=== PATIENT | male | born 1995 | race Caucasian/White ===

== ENCOUNTER 2020-11-09 16:36 | Emergency (ER) | payer BC ==
[~2020-11-09 16:36] MED LIST: FLOMAX0.4 MG PO; TORADOL 10 MG T10 MG PO; ZOFRAN ODT 4 MG4 MG PO
[2020-11-09 17:07] LABS: HEMOGLOBIN 16.2 gm/dl (14.0-17.5); RED BLOOD COUNT 5.19 M/UL (4.20-5.50); WHITE BLOOD COUNT 9.6 K/UL (4.5-11.0)
[2020-11-09 17:39] LABS: BUN/CREATININE RATIO 10 (0-10)
[2020-11-09] MEDS ORDERED: NAPROSYN500 MG PO (20:40)
== END 2020-11-09 20:47 | disposition home or self-care (01) ==
LOC: ER1 16:36
PROVIDERS: Physician Assistant Medical
DX: N20.0 Calculus of kidney (principal); Z90.49 Acquired absence of other specified parts of digestive tract; Z90.89 Acquired absence of other organs; Z88.0 Allergy status to penicillin
CPT/HCPCS: 80053; 81001; 85025; 99284

== ENCOUNTER 2020-12-14 12:35 | Emergency (ER) | payer BC ==
[~2020-12-14 12:35] MED LIST changes: +NAPROSYN500 MG PO
[2020-12-14 14:21] LABS: HEMOGLOBIN 16.4 gm/dl (14.0-17.5); RED BLOOD COUNT 5.24 M/UL (4.20-5.50); WHITE BLOOD COUNT 15.5 K/UL (4.5-11.0)
[2020-12-14 14:49] LABS: BUN/CREATININE RATIO 10 (0-10)
[2020-12-14] MEDS ORDERED: HYDROCODON-ACE1 EAC4 PO (18:36)
[2020-12-14] MEDS ORDERED: ZOFRAN4 MG PO (18:36)
== END 2020-12-14 18:55 | disposition home or self-care (01) ==
LOC: ER1 12:35
PROVIDERS: Preventive Medicine Occupational Medicine
DX: N13.2 Hydronephrosis with renal and ureteral calculous obstruction (principal)
CPT/HCPCS: 80053; 80061; 81001; 83036; 84436; 84443; 85025; 85027; 85652; 86140; 87086; 96374; 96375; 99284; J1170; J1885; J2405; J7030

== ENCOUNTER 2020-12-28 20:48 | Emergency (ER) | payer BC ==
[~2020-12-28 20:48] MED LIST changes: +HYDROCODON-ACE1 EAC4 PO; +ZOFRAN4 MG PO
[2020-12-28] MEDS ORDERED: ERYTHROMYCIN O3.5 GM EYERT (22:20)
[2020-12-28] MEDS ORDERED: ACYCLOVIR400 MG PO (22:20)
[2020-12-28] MEDS ORDERED: PREDNISONE50 MG PO (22:20)
== END 2020-12-28 23:00 | disposition home or self-care (01) ==
LOC: ER1 20:48
DX: S05.01XA Injury of conjunctiva and corneal abrasion without foreign body, right eye, initial encounter (principal); G51.0 Bell's palsy; Z90.49 Acquired absence of other specified parts of digestive tract; Z88.0 Allergy status to penicillin; F17.210 Nicotine dependence, cigarettes, uncomplicated; Z87.442 Personal history of urinary calculi; X58.XXXA Exposure to other specified factors, initial encounter
CPT/HCPCS: 99284

== ENCOUNTER 2021-10-13 11:29 | Emergency (ER) | payer BC ==
[~2021-10-13 11:29] MED LIST changes: +ACYCLOVIR400 MG PO; +ERYTHROMYCIN O3.5 GM EYERT; +PREDNISONE50 MG PO
[2021-10-13 12:09] LABS: HEMOGLOBIN 16.1 gm/dl (14.0-17.5); RED BLOOD COUNT 5.29 M/UL (4.20-5.50); WHITE BLOOD COUNT 9.3 K/UL (4.5-11.0)
[2021-10-13 12:35] LABS: BUN/CREATININE RATIO 11 (0-10)
[2021-10-13] MEDS ORDERED: ZOFRAN 4 MG TAB4 MG PO (14:57)
== END 2021-10-13 15:05 | disposition home or self-care (01) ==
LOC: ER1 11:29
PROVIDERS: Physician Assistant
DX: R10.31 Right lower quadrant pain (principal); R31.9 Hematuria, unspecified; F17.210 Nicotine dependence, cigarettes, uncomplicated; Z88.0 Allergy status to penicillin; Z87.442 Personal history of urinary calculi; Z20.822 Contact with and (suspected) exposure to COVID-19
CPT/HCPCS: 0240U; 80053; 81001; 83690; 85025; 96374; 96375; 96376; 99284; J1885; J2270; J2405